=== PATIENT | male | born 1990 | race Caucasian/White ===

== ENCOUNTER 2021-08-02 12:01 | Emergency (ER) | payer OTHER ==
--- NOTE | 2021-08-02 12:08 | ED Physician Documentation ---
History of Present Illness - Stated complaint Stated Complaint: FIT - History obtained from History obtained from: Police - History of Present Illness Timing: Today Pain level max: 0 Pain level now: 0 - Additonal information Additional information: Patient brought in by police. He is refusing to talk. Refuses to answer any questions. He did allow me to examine him, but no other history is available. Please state he has an abrasion to the left hand. Unknown tetanus. Review of Systems Unable to obtain: Uncooperative PD PAST MEDICAL HISTORY - Past Medical History Past Medical History: No - Past Surgical History Past Surgical History: No - Allergies Allergies/Adverse Reactions: Allergies Allergy/AdvReac Type Severity Reaction Status Date / Time No Known Drug Allergies Allergy Verified 08/02/21 12:08 - Living Situation Living Arrangement: reports: At home PD ED PE NORMAL - Vitals Vital signs reviewed: Yes - General General: No acute distress, Other (alert, not speaking) - HEENT HEENT: Atraumatic, EOMI, Moist mucous membranes - Neck Neck: Supple, no meningeal sign - Cardiac Cardiac: RRR, Strong equal pulses - Respiratory Respiratory: No respiratory distress, Clear bilaterally - Abdomen Abdomen: Soft, Non tender - Derm Derm: Warm and dry, Other (Slight abrasion to the left hand. I do not see any other cuts on his back, stomach, chest, lower legs.) - Neuro Neuro: Other (alert, nonverbal) - Psych Psych: Normal mood, Normal affect Results - Vitals Vitals: Vital Signs - 24 hr 08/02/21 12:08 Temperature 0 C L Heart Rate 0 L Respiratory 0 L Rate Blood Pressure 00/00 L O2 Saturation 0 L Oxygen O2 Source Room air PD MEDICAL DECISION MAKING - ED course Complexity details: considered differential ED course: Patient with an abrasion to the left hand. Unknown tetanus. He is not speaking. Nursing staff states that he refused vital signs. We will have the patient monitored in correction for any further issues. Please do not know of any medical issues that the patient has. This document was made in part using voice recognition software. While efforts are made to proofread this document, sound alike and grammatical errors may occur. Departure - Departure Disposition: 01 Home, Self Care Clinical Impression: Abrasion hand Qualifiers: Encounter type: initial encounter Laterality: left Qualified Code(s): S60.512A - Abrasion of left hand, initial encounter Condition: Stable Instructions: ED Abrasion Follow-Up: your,doctor within 1 week for wound check [Other] Comments: I recommend that his tetanus status be followed up within the next 3 days. Also recommend monitoring for signs of infection, redness, swelling, drainage from the wound.
[2021-08-02 12:24] VITALS: BP 00/00
== END 2021-08-02 12:29 | disposition home or self-care (01) ==
LOC: ED 12:01
DX: Z02.89 Encounter for other administrative examinations (principal); S60.512A Abrasion of left hand, initial encounter; X58.XXXA Exposure to other specified factors, initial encounter
CPT/HCPCS: 99281

== ENCOUNTER 2021-08-13 15:50 | Emergency (ER) | payer OTHER ==
[2021-08-13] MEDS ORDERED: SODIUM CHLORIDE 0.9% 1,000 ML IV STA (16:15)
--- NOTE | 2021-08-13 16:17 | ED Physician Documentation ---
History of Present Illness - Stated complaint Stated Complaint: CONSTIPATION - Chief complaint Chief Complaint: Abd Pain - Additonal information Additional information: 30-year-old male who is currently incarcerated at [facility] here in [place] presents the emergency department for evaluation of constipation. He has been incarcerated since before and has not had a bowel movement for about 2 to 3 weeks. He has been taking MiraLAX daily without bowel movement. He also began taking a bottle of magnesium citrate without having a bowel movement. He is insistent he has not defecated in the last 2 weeks. He is now beginning to have increased left-sided abdominal pain with some nausea. No fevers. Patient reports a remote history of opioid abuse but none for many years.. Documentation sent with the patient from the [facility]dc is requesting screening labs as well as imaging. Meds risperidone, mirtazapine, MiraLAX, magnesium citrate. Review of Systems Constitutional: denies: Fever, Chills Eyes: reports: Reviewed and negative Throat: reports: Reviewed and negative Cardiac: reports: Reviewed and negative Respiratory: reports: Reviewed and negative GI: reports: Abdominal Pain, Nausea. denies: Vomiting, Constipation, Diarrhea : reports: Reviewed and negative Skin: reports: Reviewed and negative Musculoskeletal: reports: Reviewed and negative PD PAST MEDICAL HISTORY - Past Surgical History Past Surgical History: No - Present Medications Home Medications: Ambulatory Orders Medication Instructions Recorded Confirmed Buspirone HCl 15 mg PO BID 08/13/21 08/13/21 Docusate Sodium 100Mg Capsule 100 mg PO DAILY 08/13/21 08/13/21 [Colace 100Mg Capsule] Mirtazapine 30 mg PO DAILY 08/13/21 08/13/21 risperiDONE [Risperidone Odt] 1 mg PO DAILY 08/13/21 08/13/21 risperiDONE [Risperidone Odt] 2 mg PO DAILY PM 08/13/21 08/13/21 - Allergies Allergies/Adverse Reactions: Allergies Allergy/AdvReac Type Severity Reaction Status Date / Time No Known Drug Allergies Allergy Verified 08/13/21 15:58 PD ED PE EXPANDED - General General: Alert, No acute distress, Well developed/nourished - Cardiac Cardiac: Regular Rate, Radial strong equal, Pedal strong equal, Cap refill < 2 sec. No: Murmur Present - Respiratory Respiratory: Clear to ausultation blayne. No: Distress, Labored - Abdomen Abdomen: Normal Bowel sounds, Tender to palpation (Mild left-sided abdominal tenderness without any guarding or rebound.) - Rectal Rectal: Pediatric Np present, Other (Rectal exam reveals no stool within the vault. No tenderness elicited) - Derm Derm: Normal color, Warm and dry. No: Rash - Neuro Neuro: Alert and Oriented X 3, CNII-XII intact - GCS Eye Opening: Spontaneous Motor: Obeys Commands Verbal: Oriented Total: 15 Results - Vitals Vitals: Vital Signs - 24 hr 08/13/21 08/13/21 15:53 16:21 Temperature 36.2 C L Heart Rate 112 H 106 H Respiratory 16 20 Rate Blood Pressure 129/83 H 118/80 O2 Saturation 98 97 Oxygen O2 Source Room air - Labs Labs: Laboratory Tests 08/13/21 08/13/21 16:18 16:18 WBC 5.2 RBC 5.12 Hgb 16.1 Hct 45.0 MCV 87.9 MCH 31.4 H MCHC 35.8 RDW 11.7 L Plt Count 190 MPV 9.5 Neut # (Auto) Not Reportable Lymph # (Auto) Not Reportable [place] # (Auto) Not Reportable Eos # (Auto) Not Reportable Baso # (Auto) Not Reportable Absolute Nucleated RBC Not Reportable Total Counted 100 Band Neuts % (Manual) 0 Abnorm Lymph % (Manual) 0 Nucleated RBC % Not Reportable Neutrophils # (Manual) 4.2 Lymphocytes # (Manual) 0.9 L Monocytes # (Manual) 0.1 Eosinophils # (Manual) 0.0 Basophils # (Manual) 0.0 Differential Comment MANUAL DIFFERENTIAL WBC Morphology NORMAL APPEARANCE Platelet Estimate NORMAL (130-450,000) Platelet Morphology NORMAL APPEARANCE RBC Morph Micro Appear NORMAL APPEARANCE Sodium 133 L Potassium 3.8 Chloride 98 L Carbon Dioxide 25 Anion Gap 10.0 BUN 17 Creatinine 0.9 Estimated GFR (MDRD) 100 Glucose 138 H Calcium 9.2 Total Bilirubin 1.4 H AST 15 ALT 14 Alkaline Phosphatase 45 Total Protein 7.0 Albumin 4.6 Globulin 2.4 Albumin/Globulin Ratio 1.9 Lipase 29 - Rads (name of study) CT abd Radiology: Final report received (No definite evidence of bowel obstruction. Mild fluid distention and scattered air-fluid levels within the small bowel and proximal colon without abnormal dilation or suggestive of an ileus or gastroenteritis. Moderate stool distention in the distal colon likely reflects constipation) PD MEDICAL DECISION MAKING - ED course Complexity details: reviewed results, re-evaluated patient, d/w patient, d/w security consultant (Gelacio) ED course: 30-year-old male is brought to the emergency department from her local [facility] for evaluation of constipation. Patient reports no bowel movement for about 2 weeks despite taking MiraLAX twice daily as well as now magnesium citrate. He endorses vomiting twice over the last few days. On exam he had a very nontender belly with only minimal tenderness elicited on the left side. Screening labs do not show any significant worrisome findings in particular no leukocytosis. I did do a digital rectal exam and there was no stool found in the vault. A CT of the abdomen was performed and it does show fluid distention and scattered air-fluid levels likely suggesting an ileus or gastroenteritis. However there is moderate stool distention in the distal colon which likely reflects constipation. The CT imaging findings were discussed with Dr. Gomez surgeon on-call. Given the generally nontender abdomen and findings of constipation she feels that the ileus would likely resolve with twice daily mineral fleets enemas. Plan was discussed at the bedside with the deputy as well as the patient. He will be dis charged back to the fdc in stable condition. Departure - Departure Disposition: 01 Home, Self Care Clinical Impression: Constipation Qualifiers: Constipation type: other constipation type Qualified Code(s): K59.09 - Other constipation Condition: Stable Record reviewed to determine appropriate education?: Yes Instructions: ED Constipation Ch Comments: Joss was seen in the emergency department today for constipation. His screening labs including blood count and electrolytes are essentially normal. We did do a digital rectal exam and unfortunately there was no stool in the distal rectal vault that we could disimpact. His CT scan does show stool distention however within the colon. He should continue to take the MiraLAX twice daily. You can also use the magnesium citrate once daily for the next 2 to 3 days. I did discuss this case with our surgeon on-call Dr. Brizuela. She would recommend twice daily mineral fleets enemas. He should attempt to retain them for 30 minutes each time. If despite the MiraLAX, increased water intake and twice daily enemas his symptoms are not improving, he develops fevers, has uncontrolled abdominal pain or vomiting he is to return immediately to the ER for a second evaluation.
[2021-08-13 16:25] LABS: BASOPHILS % (AUTO) 0.2 %; EOSINOPHILS % (AUTO) 1.9 %; HGB - HEMOGLOBIN 16.1 g/dL (14.0-18.0); LYMPHOCYTES % (AUTO) 17.8 %; MEAN CORPUSCULAR HEMOGLOBIN 31.4 pg (27.0-31.0); MEAN CORPUSCULAR HGB CONC 35.8 g/dL (32.0-36.0); MEAN CORPUSCULAR VOLUME 87.9 fL (80.0-94.0); MEAN PLATELET VOLUME 9.5 fL (7.4-11.4); MONOCYTES % (AUTO) 6.1 %; NEUTROPHILS % (AUTO) 73.8 %; PLT - PLATELET COUNT 190 10^3/uL (130-450); RED BLOOD COUNT 5.12 10^6/uL (4.70-6.10); RED CELL DISTRIBUTION WIDTH 11.7 % (12.0-15.0); WHITE BLOOD COUNT 5.2 x10^3/uL (4.8-10.8)
[2021-08-13 16:27] LABS: ABNORMAL LYMPHS % (MANUAL) 0 %; BAND NEUTROPHILS % (MANUAL) 0 %
[2021-08-13 16:37] LABS: ALBUMIN 4.6 g/dL (3.2-5.5); ALBUMIN/GLOBULIN RATIO 1.9 (1.0-2.2); BILIRUBIN,TOTAL 1.4 mg/dL (0.2-1.0); CALCIUM 9.2 mg/dL (8.5-10.3); CREATININE 0.9 mg/dL (0.6-1.2); POTASSIUM 3.8 mmol/L (3.5-5.0)
[2021-08-13] MEDS ORDERED: IOPAMIDOL-300 100 ML VIAL ONE (16:46)
[2021-08-13 16:59] LABS: LYMPHOCYTES # (MANUAL) 0.9 10^3/uL (1.5-3.5); LYMPHOCYTES % (MANUAL) 17 %; MONOCYTES # (MANUAL) 0.1 10^3/uL (0.0-1.0); NEUTROPHILS # (MANUAL) 4.2 10^3/uL (1.5-6.6)
[2021-08-13 17:00] LABS: DIFFERENTIAL COMMENT MANUAL DIFFERENTIAL; PLATELET ESTIMATE, MANUAL NORMAL (130-450,000) (NORMAL); PLATELET MORPHOLOGY NORMAL APPEARANCE (NORMAL); RBC MORPHOLOGY (MULTIPLE) NORMAL APPEARANCE (NORMAL); WBC MORPHOLOGY (MULTIPLE) NORMAL APPEARANCE (NORMAL)
--- NOTE | 2021-08-13 17:28 | CT Report ---
PROCEDURE: Abdomen/Pelvis W INDICATIONS: no bowel movement for 2 weeks CONTRAST: IV CONTRAST: Optiray 320 ml: 100 PO CONTRAST: *NO PO CONTRAST TECHNIQUE: After the administration of intravenous contrast, 5 mm thick sections acquired from the diaphragms to the symphysis. 5 mm thick coronal and sagittal reformats were acquired. For radiation dose reducti on, the following was used: automated exposure control, adjustment of mA and/or kV according to juana ent size. COMPARISON: None. FINDINGS: Image quality: There is mild motion artifact. ABDOMEN: Lung bases: Lung bases are clear. Heart size is normal. Solid organs: There is mild focal fatty infiltration in the anterior left hepatic lobe along the falc iform ligament. Gallbladder appears within normal limits without calcified gallstones. Biliary system is non dilated. The spleen is normal in size. Pancreas enhances normally without peripancreatic fat stranding or fluid collections. No adrenal nodules. Kidneys demonstrate no hydronephrosis. Peritoneum and bowel: Bowel loops demonstrate normal wall thickness and caliber. There is mild fluid distention and scattered air-fluid levels within nondilated small bowel loops as well as within the descending and proximal transverse colon. The findings are suggestive of an ileus or gastroenteritis. This truly, there is moderate stool distention within the descending colon suggestive of constipatio n. No free fluid or air. Nodes and vessels: No retroperitoneal or mesenteric adenopathy by size criteria. Aorta and inferior vena cava are normal in size. Miscellaneous: No ventral hernias. PELVIS: Genitourinary: Bladder wall thickness is normal. Miscellaneous: No inguinal hernias or adenopathy. Bones: No suspicious bony lesions. No vertebral body compression fractures. IMPRESSION: 1. No definite evidence of bowel obstruction. Mild fluid distention and scattered air-fluid levels wi thin the small bowel and proximal colon without abnormal dilatation are suggestive of an ileus or gas troenteritis. Moderate stool distention in the distal colon likely reflects constipation. Reviewed by: Eloy Kiser MD on 08/13/2021 4:27 PM [facility] Approved by: Eloy Kiser MD on 08/13/2021 4:27 PM [facility] Station ID: [id number]
[2021-08-13 18:04] VITALS: BP 129/87
[2021-08-13] MEDS ORDERED: IOPAMIDOL-300 100 ML VIAL IVP ONE (20:47)
== END 2021-08-13 18:09 | disposition home or self-care (01) ==
LOC: EDUNIT# → ED 15:50
DX: K59.00 Constipation, unspecified (principal)
CPT/HCPCS: 36415; 74177; 80053; 83690; 85025; 99284; Q9967

== ENCOUNTER 2024-03-31 01:07 | Outpatient (CLI) | payer OTHER | END 2024-03-31 23:59 | disposition critical access hospital (66) | LOC: EMS 01:07 | DX: R07.89 Other chest pain (principal); R42 Dizziness and giddiness; R61 Generalized hyperhidrosis; R55 Syncope and collapse | CPT/HCPCS: A0425; A0429 ==

== ENCOUNTER 2024-03-31 01:31 | Emergency (ER) | payer OTHER ==
[2024-03-31 02:12] LABS: BASOPHILS % (AUTO) 0.3 %; EOSINOPHILS # (AUTO) 0.1 10^3/uL (0.0-0.7); EOSINOPHILS % (AUTO) 1.2 %; HCT - HEMATOCRIT 39.7 % (42.0-52.0); HGB - HEMOGLOBIN 12.4 g/dL (14.0-18.0); LYMPHOCYTES # (AUTO) 2.5 10^3/uL (1.5-3.5); LYMPHOCYTES % (AUTO) 32.7 %; MEAN CORPUSCULAR HEMOGLOBIN 24.5 pg (27.0-31.0); MEAN CORPUSCULAR HGB CONC 31.2 g/dL (32.0-36.0); MEAN CORPUSCULAR VOLUME 78.3 fL (80.0-94.0); MEAN PLATELET VOLUME 8.5 fL (7.4-11.4); MONOCYTES # (AUTO) 0.5 10^3/uL (0.0-1.0); MONOCYTES % (AUTO) 6.2 %; NEUTROPHILS # (AUTO) 4.6 10^3/uL (1.5-6.6); NEUTROPHILS % (AUTO) 59.5 %; PLT - PLATELET COUNT 263 10^3/uL (130-450); RED BLOOD COUNT 5.07 10^6/uL (4.70-6.10); RED CELL DISTRIBUTION WIDTH 15.2 % (12.0-15.0); WHITE BLOOD COUNT 7.7 x10^3/uL (4.8-10.8)
[2024-03-31 02:21] LABS: TROPONIN I HIGH SENSITIVITY 3.5 ng/L (2.3-19.7)
[2024-03-31 02:27] LABS: ALBUMIN 4.1 g/dL (3.2-5.5); ALBUMIN/GLOBULIN RATIO 1.4 (1.0-2.2); BILIRUBIN,TOTAL 0.3 mg/dL (0.2-1.0); CALCIUM 9.6 mg/dL (8.5-10.3); CREATININE 0.9 mg/dL (0.6-1.3); POTASSIUM 3.4 mmol/L (3.5-4.5)
--- NOTE | 2024-03-31 03:36 | ED Physician Documentation ---
PD HPI CHEST PAIN - Stated complaint Stated Complaint: CP - Chief complaint Chief Complaint: Cardiac - History obtained from History obtained from: Patient - Additional information Additional information: HPI from patient. Patient c/o midline chest pain, rapid onset at approximately 11 PM while at home at rest but awake. Denies h/o similar symptoms. He describes the pain as a cramping sensation, episodic. The episodes last less than a minute and are without exacerbating or ameliorating factors. The episodes are tapering in frequency and severity since onset; initially, every few minutes but by the time of this H+P he says it has been more than 30 minutes since last such episode. Denies dyspnea, cough, leg swelling, n/v, abdominal pain. The pain does not radiate. PD PAST MEDICAL HISTORY - Past Medical History Past Medical History: No Cardiovascular: None Respiratory: None Neuro: None Endocrine/Autoimmune: None GI: None : None HEENT: None Psych: Depression, Anxiety Musculoskeletal: None Derm: None - Past Surgical History Past Surgical History: No - Present Medications Home Medications: Ambulatory Orders Medication Instructions Recorded Confirmed Buspirone HCl 15 mg PO BID 08/13/21 08/13/21 Docusate Sodium 100Mg Capsule 100 mg PO DAILY 08/13/21 08/13/21 [Colace 100Mg Capsule] Mirtazapine 30 mg PO DAILY 08/13/21 08/13/21 risperiDONE [Risperidone Odt] 1 mg PO DAILY 08/13/21 08/13/21 risperiDONE [Risperidone Odt] 2 mg PO DAILY PM 08/13/21 08/13/21 - Allergies Allergies/Adverse Reactions: Allergies Allergy/AdvReac Type Severity Reaction Status Date / Time No Known Drug Allergies Allergy Verified 03/31/24 01:42 - Social History Does the pt smoke?: No Smoking Status: Never smoker Does the pt drink ETOH?: No Does the pt have substance abuse?: No - Immunizations Immunizations are current?: Yes - POLST Patient has POLST: No PD ED PE NORMAL - Vitals Vital signs reviewed: Yes - General General: Alert and oriented X 3, No acute distress, Well developed/nourished - HEENT HEENT: Moist mucous membranes - Neck Neck: Supple, no meningeal sign - Cardiac Cardiac: RRR, No murmur - Respiratory Respiratory: No respiratory distress, Clear bilaterally - Abdomen Abdomen: Soft, Non tender - Derm Derm: Normal color, Warm and dry - Extremities Extremities: No edema Results - Vitals Vitals: Oxygen O2 Source Room air - EKG (time done) No standard instances EKG releavant findings:: EKG personally interpreted by author of this note. Relevant findings are: Rate: Rate (enter#) (87) Rhythm: NSR [place]: Normal Intervals: Normal [place] QRS: Normal Ischemia: Normal ST segments Computer interpretation: Disagree with computer (no ST changes (including no ST elevation)) - Labs Labs: Laboratory Tests 03/31/24 03/31/24 01:50 02:07 WBC 7.7 RBC 5.07 Hgb 12.4 L Hct 39.7 L MCV 78.3 L MCH 24.5 L MCHC 31.2 L RDW 15.2 H Plt Count 263 MPV 8.5 Neut # (Auto) 4.6 Lymph # (Auto) 2.5 [place] # (Auto) 0.5 Eos # (Auto) 0.1 Baso # (Auto) 0.0 Absolute Nucleated RBC 0.00 Nucleated RBC % 0.0 Sodium 139 Potassium 3.4 L Chloride 104 Carbon Dioxide 26 Anion Gap 9.0 BUN 17 Creatinine 0.9 Estimated GFR (MDRD) 98 Glucose 114 H Calcium 9.6 Total Bilirubin 0.3 AST 15 ALT 14 Alkaline Phosphatase 74 Troponin I High Sens 3.5 Total Protein 7.0 Albumin 4.1 Globulin 2.9 Albumin/Globulin Ratio 1.4 Lipase 27 - Rads (name of study) chest xray Relevant Findings:: Prelim report reviewed, See rad report PD Medical Decision Making - ED course Complexity details: reviewed results, re-evaluated patient, considered differential, d/w patient ED course: No concerning nor diagnostic findings on tests including CBC (hgb 12.4), ER abdominal panel (minimal hypokalemia, K 3.4). Normal hs-cTn. Normal CXR and EKG. My bedside US shows nondistended GB without evidence of gallstones. Results d/w patient, return precautions reviewed. Etiology of patient's symptoms is not apparent at this time. Advised to seek follow up with PCP for reevaluation. Departure - Departure Disposition: 01 Home, Self Care Clinical Impression: Chest pain Qualifiers: Chest pain type: unspecified Qualified Code(s): R07.9 - Chest pain, unspecified Condition: Good Instructions: ED Chest Pain Atypical Unkn Cause Comments: There were no concerning nor diagnostic findings on tonight's tests including the EKG, chest x-ray, and blood test. Your potassium was just below the normal range (3.4), and your red blood cell levels (hemoglobin, hematocrit) were slightly below normal range. Neither of these results are concerning nor would they cause/contribute to symptoms. You should mention these abnormal results to your primary care provider when you follow-up with them. The cause of your chest pain is not apparent at this time, but the test results do not suggest a specific nor dangerous cause. Contact your primary care provider in the morning to arrange for the next available appointment for follow-up/reevaluation. Discharge Date/Time: 03/31/24 04:11
[2024-03-31 04:07] VITALS: BP 122/68; O2SAT 98
--- NOTE | 2024-03-31 08:29 | XRAY Report ---
PROCEDURE: Chest 1V INDICATIONS: chest pain TECHNIQUE: One view of the chest was acquired. COMPARISON: None. FINDINGS: Surgical changes and devices: None. Lungs and pleura: No pleural effusions or pneumothorax. Lungs are clear. Mediastinum: Mediastinal contours appear normal. Heart size is normal. Bones and chest wall: No suspicious bony lesions. Overlying soft tissues appear unremarkable. IMPRESSION: No acute cardiopulmonary process. Findings are concordant with preliminary interpretation provided by [facility]. Reviewed by: Storm Riley MD on 03/31/2024 8:28 AM PDT Approved by: Storm Riley MD on 03/31/2024 8:28 AM PDT Station ID: [id number]
== END 2024-03-31 04:11 | disposition home or self-care (01) ==
LOC: EDUNIT# → ED 01:31
DX: R07.9 Chest pain, unspecified (principal); E87.6 Hypokalemia; Z79.899 Other long term (current) drug therapy
CPT/HCPCS: 36415; 80053; 83690; 84484; 85025; 93005; 99283; 99284

== ENCOUNTER 2024-04-05 13:54 | Emergency (ER) | payer OTHER ==
[2024-04-05 15:53] LABS: BASOPHILS % (AUTO) 0.2 %; EOSINOPHILS % (AUTO) 0.1 %; HCT - HEMATOCRIT 43.8 % (42.0-52.0); HGB - HEMOGLOBIN 13.9 g/dL (14.0-18.0); LYMPHOCYTES # (AUTO) 1.4 10^3/uL (1.5-3.5); LYMPHOCYTES % (AUTO) 11.9 %; MEAN CORPUSCULAR HEMOGLOBIN 24.5 pg (27.0-31.0); MEAN CORPUSCULAR HGB CONC 31.7 g/dL (32.0-36.0); MEAN CORPUSCULAR VOLUME 77.1 fL (80.0-94.0); MEAN PLATELET VOLUME 8.3 fL (7.4-11.4); MONOCYTES # (AUTO) 0.3 10^3/uL (0.0-1.0); MONOCYTES % (AUTO) 2.6 %; NEUTROPHILS # (AUTO) 9.7 10^3/uL (1.5-6.6); PLT - PLATELET COUNT 300 10^3/uL (130-450); RED BLOOD COUNT 5.68 10^6/uL (4.70-6.10); WHITE BLOOD COUNT 11.4 x10^3/uL (4.8-10.8)
[2024-04-05 16:08] LABS: ALBUMIN 4.6 g/dL (3.2-5.5); ALBUMIN/GLOBULIN RATIO 1.5 (1.0-2.2); BILIRUBIN,TOTAL 0.4 mg/dL (0.2-1.0); CALCIUM 10.1 mg/dL (8.5-10.3); CREATININE 0.9 mg/dL (0.6-1.3); POTASSIUM 4.2 mmol/L (3.5-4.5); TOTAL PROTEIN 7.7 g/dL (6.4-8.9)
--- NOTE | 2024-04-05 17:23 | ED Physician Documentation ---
History of Present Illness - Stated complaint Stated Complaint: HIGH HR,COLD SWEATS - Chief complaint Chief Complaint: Cardiac - History obtained from History obtained from: Patient, Family - History of Present Illness Timing: Today Pain level max: 0 Pain level now: 0 - Additonal information Additional information: 33-year-old male presents to the emergency department stating that he was on the elliptical machine today when he felt like his heart rate spiked, he had a cold sweat and felt near syncopal. No chest pain. He states similar events have happened in the past where he feels like his heart skips a beat or that it will race. He has never had a heart monitor placed. He was seen here recently for chest pain and had a negative cardiac evaluation in the emergency department. No history of blood clots in the family. He states normally he can do about 30 minutes on the elliptical machine, he states the symptoms occurred after about 10 to 11 minutes today. He also had abdominal "bloating". No fevers. No chills. No cough or congestion. No recent travel. No cardiac history. He feels normal now. Nothing made the symptoms better or worse at the time Review of Systems Constitutional: denies: Fever, Chills Respiratory: denies: Cough GI: denies: Vomiting, Diarrhea PD PAST MEDICAL HISTORY - Past Medical History Cardiovascular: None Respiratory: None Neuro: None Endocrine/Autoimmune: None GI: None : None HEENT: None Psych: Depression, Anxiety Musculoskeletal: None Derm: None - Past Surgical History Past Surgical History: No - Present Medications Home Medications: Ambulatory Orders Medication Instructions Recorded Confirmed Buspirone HCl 15 mg PO BID 08/13/21 08/13/21 Docusate Sodium 100Mg Capsule 100 mg PO DAILY 08/13/21 08/13/21 [Colace 100Mg Capsule] Mirtazapine 30 mg PO DAILY 08/13/21 08/13/21 risperiDONE [Risperidone Odt] 1 mg PO DAILY 08/13/21 08/13/21 risperiDONE [Risperidone Odt] 2 mg PO DAILY PM 08/13/21 08/13/21 - Allergies Allergies/Adverse Reactions: Allergies Allergy/AdvReac Type Severity Reaction Status Date / Time No Known Drug Allergies Allergy Verified 04/05/24 14:35 - Social History Does the pt smoke?: No Smoking Status: Never smoker Does the pt drink ETOH?: No Does the pt have substance abuse?: No - Immunizations Immunizations are current?: Yes - POLST Patient has POLST: No PD ED PE NORMAL - Vitals Vital signs reviewed: Yes - General General: Alert and oriented X 3, No acute distress - HEENT HEENT: PERRL, Moist mucous membranes - Neck Neck: Supple, no meningeal sign - Cardiac Cardiac: RRR, Strong equal pulses - Respiratory Respiratory: No respiratory distress, Clear bilaterally - Abdomen Abdomen: Soft, Non tender, Non distended - Back Back: No CVA TTP, No spinal TTP - Derm Derm: Warm and dry - Extremities Extremities: No edema, No calf tenderness / cord - Neuro Neuro: Alert and oriented X 3 - Psych Psych: Normal mood, Normal affect Results - Vitals Vitals: Vital Signs - 24 hr 04/05/24 04/05/24 14:31 17:51 Temperature 36.6 C Heart Rate 98 88 Respiratory 18 18 Rate Blood Pressure 130/91 H 134/100 H O2 Saturation 98 99 Oxygen O2 Source Room air - EKG (time done) 1427 EKG releavant findings:: EKG personally interpreted by author of this note. Relevant findings are: Rate: Rate (enter#) (94) Rhythm: NSR [place]: Normal Intervals: Normal [place] QRS: Normal Ischemia: Normal ST segments - Labs Labs: Laboratory Tests 04/05/24 04/05/24 15:48 15:48 WBC 11.4 H RBC 5.68 Hgb 13.9 L Hct 43.8 MCV 77.1 L MCH 24.5 L MCHC 31.7 L RDW 15.0 Plt Count 300 MPV 8.3 Neut # (Auto) 9.7 H Lymph # (Auto) 1.4 L [place] # (Auto) 0.3 Eos # (Auto) 0.0 Baso # (Auto) 0.0 Absolute Nucleated RBC 0.00 Nucleated RBC % 0.0 Sodium 138 Potassium 4.2 Chloride 104 Carbon Dioxide 25 Anion Gap 9.0 BUN 16 Creatinine 0.9 Estimated GFR (MDRD) 98 Glucose 119 H Calcium 10.1 Total Bilirubin 0.4 AST 14 ALT 14 Alkaline Phosphatase 78 Total Protein 7.7 Albumin 4.6 Globulin 3.1 Albumin/Globulin Ratio 1.5 Lipase 20 PD Medical Decision Making - ED course Complexity details: reviewed results, re-evaluated patient, considered differential (No ST elevation [place], no aortic dissection, no PE, no tension pneumothorax, no aortic aneurysm), d/w patient ED course: 33-year-old male with what sounds like palpitations, this has been an ongoing issue for the patient. Recently had a negative troponin, did not have any chest pain today. Do not see an indication to repeat this at this time. Had a negative chest x-ray 2 days ago. No indication to repeat this either. No arrhythmias on telemetry. Patient is very well-appearing, nontoxic. Recommend that he follow-up with his doctor to have a Holter monitor or Zio patch placed. He may also benefit from an echocardiogram. Recommend that he avoid strenuous activity until these things are performed. No evidence of PE. No history of blood clots, calf swelling. Patient counseled regarding signs and symptoms for which I believe and urgent re-evaluation would be necessary. Patient with good understanding of and agreement to plan and is comfortable going home at this time This document was made in part using voice recognition software. While efforts are made to proofread this document, sound alike and grammatical errors may occur. Departure - Departure Disposition: 01 Home, Self Care Clinical Impression: Palpitations Condition: Good Instructions: ED Palpitations Follow-Up: Your,doctor in 1 week [Other] Comments: It appears that you are having palpitations, it is recommended that you have a Zio patch or Holter monitor placed to evaluate for any potential arrhythmias. It is recommended that you have an echocardiogram ordered by your primary care provider as well. I would refrain from any strenuous activity until these 2 things are done. In addition she may want to perform a cardiac stress test to see if there are any arrhythmias uncovered by that testing. Please return if you worsen. Forms: PCP List Discharge Date/Time: 04/05/24 17:51
[2024-04-05 18:08] VITALS: BP 134/100; O2SAT 99
== END 2024-04-05 17:51 | disposition home or self-care (01) ==
LOC: ED 13:54
DX: R00.2 Palpitations (principal)
CPT/HCPCS: 36415; 80053; 83690; 85025; 93005; 99283

== ENCOUNTER 2024-05-17 02:05 | Outpatient (CLI) | payer OTHER | END 2024-05-17 23:59 | disposition EMS.NT | LOC: EMS 02:05 | DX: R46.89 Other symptoms and signs involving appearance and behavior (principal); Z91.148 Patient's other noncompliance with medication regimen for other reason ==